=== PATIENT | male | born 1945 | race Caucasian/White ===

== ENCOUNTER 2016-04-25 08:45 | Outpatient (CLI) | payer MEDICARE, BC | END 2016-04-25 08:46 | disposition home or self-care (01) | DX: Z00.00 Encounter for general adult medical examination without abnormal findings (principal); Z13.6 Encounter for screening for cardiovascular disorders; Z79.1 Long term (current) use of non-steroidal anti-inflammatories (NSAID); N40.1 Benign prostatic hyperplasia with lower urinary tract symptoms; K59.00 Constipation, unspecified; M54.6 Pain in thoracic spine; Z13.1 Encounter for screening for diabetes mellitus ==

== ENCOUNTER 2018-03-04 11:09 | Outpatient (CLI) | payer MEDICARE, BC ==
[2018-03-04 17:45] LABS: BILIRUBIN,URINE NEGATIVE (NEGATIVE); GLUCOSE, URINE (UA) NEGATIVE (NEGATIVE); KETONES,URINE (UA) NEGATIVE (NEGATIVE); LEUKOCYTE ESTERASE, URINE NEGATIVE (NEGATIVE); NITRITE,URINE NEGATIVE (NEGATIVE); OCCULT BLOOD,URINE NEGATIVE (NEGATIVE); PROTEIN,URINE NEGATIVE (NEGATIVE); UROBILINOGEN,URINE 0.2 (NORMAL) E.U./dL (NORMAL)
[2018-03-04 17:54] LABS: CLARITY,URINE CLEAR (CLEAR)
== END 2018-03-04 11:10 | disposition home or self-care (01) ==
LOC: LAB.F 11:09
PROVIDERS: ATTEND Internal Medicine
DX: N40.1 Benign prostatic hyperplasia with lower urinary tract symptoms (principal)
CPT/HCPCS: 81001; 81003; 87086

== ENCOUNTER 2018-03-09 09:57 | Outpatient (CLI) | payer MEDICARE, BC ==
--- NOTE | 2018-03-09 17:12 | XRAY Report ---
Reason: NECK PAIN,THORACIC BACK PAIN Procedure Date: 03/09/2018 Accession Number: [id number] / [id number] Procedure: XR - Cervical Spine Complete CPT Code: FULL RESULT: EXAM: CERVICAL SPINE RADIOGRAPHY. EXAM DATE: 03/09/2018 10:18 AM. CLINICAL HISTORY: Neck pain, thoracic back pain. COMPARISONS: None. TECHNIQUE: 5 views. FINDINGS: Alignment: There is loss of the normal cervical lordosis with mild degenerative straightening/kyphosis. No significant listhesis. Bones: No acute fracture identified. There are left lateral malleable plate and screw devices fixated to the left lateral masses and the spinous processes C3-C7. Hardware appears intact. No fractures or bone lesions. Disks: There is multilevel degenerative disk space narrowing with anterior osteophyte greatest at C5-C6 and C6-C7 with mild to moderate anterior osteophyte at C3-C4 and C4-C5. Facets: Multilevel facet arthrosis resulting in mild right-sided foraminal narrowing at C5-C6 and on the left at C3-C4 and C4-C5. Neural Foramina: As above. Soft Tissues: Normal. No prevertebral soft tissue swelling. The visualized lung apices are clear. IMPRESSION: Multilevel degenerative disk and facet changes as described. Intact hardware as described. No acute fracture appreciated. RADIA
--- NOTE | 2018-03-10 10:13 | XRAY Report ---
Reason: NECK PAIN,THORACIC BACK PAIN Procedure Date: 03/09/2018 Accession Number: [id number] / [id number] Procedure: XR - Thoracic Spine 2 View CPT Code: FULL RESULT: EXAM: THORACIC SPINE RADIOGRAPHY EXAM DATE: 03/09/2018 10:18 AM. CLINICAL HISTORY: Neck pain, thoracic back pain. COMPARISON: None. TECHNIQUE: 2 views. FINDINGS: Alignment: Normal. No spondylolisthesis or scoliosis. Bones: There is mild fishmouth-type endplate compression of T7-T9 age-indeterminate but likely remote. There is no paraspinous soft tissue swelling. No appreciable loss of height of the upper thoracic spine in the region of pain. Disks: Normal. Disk heights are maintained. Soft Tissues: Normal. The visualized lungs and cardiomediastinal silhouette are normal. IMPRESSION: Mild fishmouth-type endplate compression T7 through T9 age-indeterminate. No evidence of acute compression fracture of the upper thoracic spine in the region of symptoms. RADIA
== END 2018-03-09 09:58 | disposition home or self-care (01) ==
LOC: DI 09:57
PROVIDERS: ATTEND Internal Medicine
DX: M50.30 Other cervical disc degeneration, unspecified cervical region (principal); M25.78 Osteophyte, vertebrae; M51.04 Intervertebral disc disorders with myelopathy, thoracic region
CPT/HCPCS: 72050; 72070

== ENCOUNTER 2018-03-18 10:08 | Outpatient (CLI) | payer MEDICARE, BC ==
--- NOTE | 2018-03-19 09:11 | DEXA Report ---
Reason: OTHER SPECIFIED DISCORDERS OF BONE, MULTIPLE SITES Procedure Date: 03/18/2018 Accession Number: [id number] / [id number] Procedure: DEX - Dexa Spine and/or Hip CPT Code: FULL RESULT: EXAM: Dexa Spine and/or Hip DATE: 03/18/2018 11:42 AM CLINICAL HISTORY: OTHER SPECIFIED DISCORDERS OF BONE, MULTIPLE SITES TECHNIQUE: Dual energy x-ray absorptiometry (DXA) was performed on a [employer] System. Regions measured are the AP Spine, femoral neck, and if needed forearm. COMPARISON: None. In accordance with the International Society for Clinical Densitometry (ISCD) guidelines, data from previous exams may be reanalyzed using current recommendations and techniques. This is done to allow a more accurate basis for comparison with the current study. FINDINGS: The data for the lumbar spine is as follows: BMD (g/cm/cm) T-SCORE Z-SCORE REGION L1 1.039 -1.0 L2 1.042 -1.7 L3 1.280 0.3 L4 1.415 1.5 TOTAL 1.201 -0.2 NOTE: All evaluable vertebrae are used for classification The data for the hip is as follows: BMD (g/cm/cm) T-SCORE Z-SCORE REGION Neck 0.943 -1.0 TOTAL 1.070 -0.2 NOTE: The femoral neck or total proximal femur, whichever is lowest, is used for classification. IMPRESSION: THE WHO CLASSIFICATION BASED ON THE INTERNATIONAL REFERENCE STANDARD IS NORMAL. THE FRACTURE RISK IS NOT INCREASED. RECOMMENDATION: Patients with diagnosis of osteoporosis or osteopenia should have regular bone mineral density assessment. For those eligible for Medicare, routine testing is allowed once every 2 years. Testing frequency can be increased for patients who have rapidly progressing disease or for those who are receiving medical therapy to restore bone mass. COMMENT: World Health Organization (WHO) definitions for osteoporosis and osteopenia: NORMAL BMD: T-score at -1.0 or higher, fracture risk is low OSTEOPENIA BMD: T-score between -1.0 and -2.5, fracture risk is increased. OSTEOPOROSIS BMD: T-score at -2.5 or lower, fracture risk is high. National Osteoporosis Foundation recommends: 1. Obtain adequate dietary calcium (at least 1200 mg per day) and vitamin D (400-800 international units per day). 2. Participate, as appropriate, in regular weightbearing and muscle-strengthening exercise. 3. Avoid tobacco use and reduce alcohol and caffeine intake. 4. For more detailed information see the website at www.NOF.org.
== END 2018-03-18 10:09 | disposition home or self-care (01) ==
LOC: DI 10:08
PROVIDERS: ATTEND Internal Medicine
DX: M85.89 Other specified disorders of bone density and structure, multiple sites (principal)
CPT/HCPCS: 77080

== ENCOUNTER 2018-05-21 08:05 | Outpatient (CLI) | payer MEDICARE, BC | END 2018-05-21 08:06 | disposition home or self-care (01) | LOC: LAB.F 08:05 | PROVIDERS: ATTEND Internal Medicine | DX: E66.3 Overweight (principal); Z13.1 Encounter for screening for diabetes mellitus | CPT/HCPCS: 36415; 82947 ==

== ENCOUNTER 2018-06-11 08:19 | Outpatient (CLI) | payer MEDICARE, BC ==
--- NOTE | 2018-06-11 14:45 | Ultrasound Report ---
Reason: FAMILY HISTORY: AORTIC ANEURYSM Procedure Date: 06/11/2018 Accession Number: [id number] / [id number] Procedure: US - Aorta Screening CPT Code: FULL RESULT: EXAM: AORTIC DOPPLER ULTRASOUND EXAM DATE: 06/11/2018 08:36 AM. CLINICAL HISTORY: FAMILY HISTORY: AORTIC ANEURYSM. COMPARISON: None. TECHNIQUE: Real-time sonographic imaging of retroperitoneal vascular structures, including color-flow, Doppler flow and spectral analysis was performed by the sales representative leather [employer]. Multiple veterans employment representative static images were saved for review. FINDINGS: Aorta: The abdominal aorta was adequately visualized. Vascular ectasia with no evidence for abdominal aortic aneurysm. Aorta: Proximal: Sagittal AP: 2.5 cm. Mid: Transverse: 2.5 x 2.7 cm. Distal: Transverse: 2.1 x 2.6 cm. Caliber WNL: Yes. Plaque visualized: No. Iliacs: Right Iliac: Transverse: 1.3 x 1.3 cm. Left Iliac: Transverse: 1.4 x 1.3 cm. Iliac Vessels: The visualized proximal common iliac arteries are normal in caliber. Other: None. IMPRESSION: Aortic ectasia. No abdominal aortic aneurysm. RADIA
== END 2018-06-11 08:20 | disposition home or self-care (01) ==
LOC: DI 08:19
PROVIDERS: ATTEND Internal Medicine
DX: I77.819 Aortic ectasia, unspecified site (principal); Z82.49 Family history of ischemic heart disease and other diseases of the circulatory system
CPT/HCPCS: 76706

== ENCOUNTER 2019-06-01 07:37 | Outpatient (CLI) | payer MEDICARE, BC ==
[2019-06-01 10:17] LABS: CALCIUM 9.3 mg/dL (8.5-10.3)
== END 2019-06-01 07:38 | disposition home or self-care (01) ==
LOC: LAB.S 07:37
PROVIDERS: ATTEND Internal Medicine
DX: I10 Essential (primary) hypertension (principal)
CPT/HCPCS: 36415; 80048

== ENCOUNTER 2019-08-31 09:16 | Outpatient (CLI) | payer MEDICARE, BC ==
--- NOTE | 2019-08-31 10:02 | XRAY Report ---
Reason: CERVICAL RADICULOPATHY,LT HIP PAIN,RT JOINT PAIN Procedure Date: 08/31/2019 Accession Number: [id number] / [id number] Procedure: XR - Hips 2V BILAT CPT Code: Final Report FULL RESULT: PROCEDURE: Hips 2V BILAT INDICATIONS: CERVICAL RADICULOPATHY,LT HIP PAIN,RT JOINT PAIN TECHNIQUE: 3 views of the hip were acquired. COMPARISON: None. FINDINGS: Bones: No fractures or dislocations. No suspicious bony lesions. The visualized pelvic ring appears intact. Mild bilateral hip joint degeneration. Lower lumbar spondylosis and mild lateral curvature. Sacroiliac joints grossly unremarkable. Soft tissues: No suspicious soft tissue calcifications or masses. IMPRESSION: Mild bilateral hip joint degeneration. Reviewed by: Oliver Slade MD on 08/31/2019 10:00 AM PDT Approved by: Oliver Slade MD on 08/31/2019 10:00 AM PDT Station ID: [id number]
--- NOTE | 2019-08-31 15:38 | MRI Report ---
Reason: CERVICAL RADICULOPATHY,LT HIP PAIN,RT JOINT PAIN Procedure Date: 08/31/2019 Accession Number: [id number] / [id number] Procedure: MRI - Cervical Spine W/O CPT Code: Final Report FULL RESULT: PROCEDURE: Cervical Spine W/O INDICATIONS: CERVICAL RADICULOPATHY,LT HIP PAIN,RT JOINT PAIN TECHNIQUE: Noncontrast sagittal T1 spin echo and T2 fast spin echo, sagittal STIR, foraminal oblique sagittal T2 fast spin echo, and axial gradient echo or T2 fast spin echo through the cervical spine. COMPARISON: Cervical spine x-ray series 03/09/2018. FINDINGS: Image quality: Excellent. Alignment and Curvature: There is normal bony alignment. Bone Marrow: Mild reactive endplate changes noted adjacent to the C2-C3, C3-C4, C4-C5, C5-C6 and C6-C7 discs. Spinal Cord: Small, proximally 6 mm diameter focus of increased T2 signal noted in the dorsal column of the thoracic spinal cord level of the C5 vertebral body. No cerebellar tonsillar herniation. Paraspinous Soft Tissues: No paravertebral masses. Prevertebral soft tissues are normal in thickness. C2-C3: Loss of disc signal and mild loss of disc height. Moderate, diffuse disc bulge. Mild ligament flavum hypertrophy. Moderate bilateral facet hypertrophy. Severe narrowing of the central canal with mild compression of the cervical spinal cord. Severe bilateral neural foraminal narrowing with compression of the exiting C3 nerve roots. C3-C4: Loss of disc signal and mild loss of disc height. Moderate, diffuse disc bulge. Mild bilateral facet hypertrophy. Severe narrowing of the central canal with slight compression of the cervical spinal cord. Severe bilateral neural foraminal narrowing with compression of the exiting C4 nerve roots. C4-C5: Loss of disc signal. Mild, diffuse disc bulge. Mild right and moderate left facet hypertrophy. Mild bilateral uncovertebral joint hypertrophy. Moderate narrowing of the central canal. Severe bilateral neural foraminal narrowing with compression of the exiting C5 nerve roots. C5-C6: Loss of disc signal and mild loss of disc height. Mild, diffuse disc bulge. Mild bilateral facet hypertrophy. Moderate bilateral uncovertebral joint hypertrophy. Mild narrowing of the central canal. Severe bilateral neural foraminal narrowing with compression of the exiting C6 nerve roots. C6-C7: Loss of disc signal and height. Mild, diffuse disc bulge. Mild bilateral facet hypertrophy. Moderate bilateral uncovertebral joint hypertrophy. Mild narrowing of the central canal. Severe bilateral neural foraminal narrowing with compression of the exiting C7 nerve roots. C7-T1: Loss of disc signal. Mild, diffuse disc bulge. Mild ligamentum flavum hypertrophy. Mild bilateral facet hypertrophy. Moderate narrowing of the central canal. Severe bilateral neural foraminal narrowing with compression of the exiting C8 nerve roots. IMPRESSION: 1. Small focus of increased T2 signal in the cervical spinal cord level of the C5 vertebral body. Finding is nonspecific may represent demyelinating process such as multiple sclerosis, small area of myelomalacia or less likely early neoplastic process. Recommend MRI of cervical spine with contrast for further characterization. 2. Multilevel degenerative disc disease. 3. Multilevel facet and uncovertebral arthropathy. 4. Severe C2-C3 and C3-C4 central canal narrowing with slight compression of the cervical spinal cord. 5. Severe bilateral C2-C3, C3-C4, C4-C5, C5-C6, C6-C7 and C7-T8 neural foraminal narrowing. There is compression of the exiting bilateral C3, C4, C5, C6, C7 and C8 nerve root secondary to neural foraminal narrowing. Reviewed by: Edelmira Mitchell MD, PhD on 08/31/2019 3:37 PM PDT Approved by: Edelmira Mitchell MD, PhD on 08/31/2019 3:37 PM PDT Station ID: [id number]
== END 2019-08-31 09:17 | disposition home or self-care (01) ==
LOC: DI 09:16
PROVIDERS: ATTEND Internal Medicine
DX: M50.91 Cervical disc disorder, unspecified, high cervical region (principal); M47.812 Spondylosis without myelopathy or radiculopathy, cervical region; M47.813 Spondylosis without myelopathy or radiculopathy, cervicothoracic region; M48.02 Spinal stenosis, cervical region; M48.03 Spinal stenosis, cervicothoracic region; M16.0 Bilateral primary osteoarthritis of hip
CPT/HCPCS: 72141; 73521

== ENCOUNTER 2019-09-14 17:01 | Outpatient (CLI) | payer MEDICARE, BC ==
[2019-09-14 17:46] LABS: CREATININE 0.9 mg/dL (0.6-1.2)
[2019-09-14] MEDS ORDERED: GADOBUTROL 7.5 MMOL/7.5 ML VIAL ONE (18:07)
[2019-09-14] MEDS ORDERED: GADOBUTROL 7.5 MMOL/7.5 ML VIAL IVP ONE (19:05)
--- NOTE | 2019-09-15 10:03 | MRI Report ---
PROCEDURE: Cervical Spine W/WO INDICATIONS: CERVICAL SPINAL STENOSIS CONTRAST: IV CONTRAST: Gadavist ml: 7.5 TECHNIQUE: Noncontrast sagittal T1 spin echo and T2 fast spin echo, sagittal STIR, sagittal PD fast spin echo, f oraminal oblique sagittal T2 fast spin echo, axial gradient echo or T2 fast spin echo through the cer vical spine. After the administration of contrast, sagittal and axial T1 spin echo with fat saturati on through the cervical spine. COMPARISON: Noncontrast cervical spine MRI 08/31/2019. Correlation is also made with cervical spine p opal films 03/09/2018. FINDINGS: Image quality: Diagnostic, with note made of motion artifact. Alignment and curvature: There is straightening of the normal cervical lordosis. Minimal retrolisthe sis is seen at the C3-C4 level. Marrow: Marrow demonstrates normal overall signal. Spinal cord: There is again seen a focus of increased T2-weighted signal within the spinal cord at t he C5 level, as on series 401 image 7. This focus does not enhance. No additional abnormal foci can b e seen within the spinal cord. No abnormal spinal cord enhancement can be seen elsewhere. Visualized spinal cord is normal in size. No cerebellar tonsillar herniation. Paraspinous soft tissues: No paravertebral masses or suspicious enhancement. Postoperative changes are seen, which are much better demonstrated on plain film, with removal of por tions of the posterior elements on the left and placement of plate and screw fixation. This patient has multiple levels of relatively prominent cervical spine degenerative change, which ar e unchanged compared to the prior study 2 weeks previously. IMPRESSION: The previously seen abnormal focus of increased T2-weighted signal at the C5 level does not enhance. Reviewed by: Evan Stout MD on 09/15/2019 9:02 AM KOJO Approved by: Evan Stout MD on 09/15/2019 9:02 AM KOJO Station ID: [id number]
== END 2019-09-14 17:02 | disposition home or self-care (01) ==
LOC: DI 17:01
PROVIDERS: ATTEND Internal Medicine
DX: M47.812 Spondylosis without myelopathy or radiculopathy, cervical region (principal); I10 Essential (primary) hypertension
CPT/HCPCS: 36415; 72156; 82565; A9585

== ENCOUNTER 2020-01-26 10:35 | Outpatient (CLI) | payer MEDICARE, BC ==
[2020-01-26 15:24] LABS: CALCIUM 9.4 mg/dL (8.5-10.3); CREATININE 0.9 mg/dL (0.6-1.2)
== END 2020-01-26 10:36 | disposition home or self-care (01) ==
LOC: LAB.S 10:35
PROVIDERS: ATTEND Internal Medicine
DX: I10 Essential (primary) hypertension (principal)
CPT/HCPCS: 36415; 80048

== ENCOUNTER 2020-02-23 14:25 | Outpatient (CLI) | payer MEDICARE, BC ==
[2020-02-23 20:29] LABS: CALCIUM 9.7 mg/dL (8.5-10.3)
== END 2020-02-23 14:26 | disposition home or self-care (01) ==
LOC: LAB.S 14:25
PROVIDERS: ATTEND Internal Medicine
DX: I10 Essential (primary) hypertension (principal)
CPT/HCPCS: 36415; 80048

== ENCOUNTER 2020-05-24 08:05 | Outpatient (CLI) | payer MEDICARE, BC ==
[2020-05-24 15:46] LABS: BUN - BLOOD UREA NITROGEN 23 mg/dL (6-20); CALCIUM 9.6 mg/dL (8.5-10.3); CARBON DIOXIDE - CO2 27 mmol/L (21-32); CHLORIDE 104 mmol/L (101-111); CHOL/HDL RATIO 2.8 (<5.0); CHOLESTEROL 225 mg/dL; CREATININE 0.9 mg/dL (0.6-1.2); GFR - MDRD 83 (>89); GLUCOSE 99 mg/dL (70-100); HDL CHOLESTEROL 81 mg/dL; LDL CHOLESTEROL,CALCULATED 133 mg/dL; LDL/HDL RATIO 1.6 (<3.6); POTASSIUM 4.1 mmol/L (3.5-5.0); SODIUM 137 mmol/L (135-145); TRIGLYCERIDES 55 mg/dL; VLDL CHOLESTEROL 11 mg/dL
== END 2020-05-24 08:06 | disposition home or self-care (01) ==
LOC: LAB.S 08:05
PROVIDERS: ATTEND Internal Medicine
DX: I10 Essential (primary) hypertension (principal); Z13.220 Encounter for screening for lipoid disorders
CPT/HCPCS: 36415; 80048; 80061; 83721

== ENCOUNTER 2020-11-28 08:00 | Outpatient (CLI) | payer MEDICARE, BC ==
--- NOTE | 2020-11-28 15:49 | XRAY Report ---
PROCEDURE: Hand 3 View RT INDICATIONS: SPRAIN OF RIGHT LITTLE FINGER TECHNIQUE: 3 views of the hand(s) acquired. COMPARISON: None FINDINGS: Bones: There is a fracture at the base of the proximal fifth phalanx with intra-articular extension. It is minimally displaced. No suspicious bony lesions. Soft tissues: No suspicious soft tissue calcifications. IMPRESSION: Minimally displaced intra-articular proximal fifth phalanx base fracture. Reviewed by: Ada Blanchard MD on 11/28/2020 3:48 PM PDT Approved by: Ada Blanchard MD on 11/28/2020 3:48 PM PDT Station ID: [id number]
== END 2020-11-28 23:59 | disposition home or self-care (01) ==
LOC: DI.S 08:00
PROVIDERS: ATTEND Emergency Medicine
DX: S62.616A Displaced fracture of proximal phalanx of right little finger, initial encounter for closed fracture (principal)

== ENCOUNTER 2021-07-12 09:59 | Outpatient (CLI) | payer MEDICARE, BC ==
[2021-07-12 15:41] LABS: BUN - BLOOD UREA NITROGEN 26 mg/dL (6-20); CALCIUM 9.4 mg/dL (8.5-10.3); CARBON DIOXIDE - CO2 27 mmol/L (21-32); CHLORIDE 97 mmol/L (101-111); CHOL/HDL RATIO 2.4 (<5.0); CHOLESTEROL 235 mg/dL; GFR - MDRD 73 (>89); GLUCOSE 91 mg/dL (70-100); HDL CHOLESTEROL 97 mg/dL; LDL CHOLESTEROL,CALCULATED 128 mg/dL; LDL/HDL RATIO 1.3 (<3.6); POTASSIUM 4.7 mmol/L (3.5-5.0); SODIUM 132 mmol/L (135-145); TRIGLYCERIDES 51 mg/dL; VLDL CHOLESTEROL 10 mg/dL
[2021-07-12 16:39] LABS: ESTIMATED AVERAGE GLUCOSE 105 mg/dL (70-100); HEMOGLOBIN A1c% 5.3 % (4.27-6.07)
== END 2021-07-12 10:00 | disposition home or self-care (01) ==
LOC: LAB.S 09:59
PROVIDERS: ATTEND Internal Medicine
DX: I10 Essential (primary) hypertension (principal); Z13.1 Encounter for screening for diabetes mellitus; Z13.220 Encounter for screening for lipoid disorders
CPT/HCPCS: 36415; 80048; 80061; 81599; 83036; 83721

== ENCOUNTER 2022-08-09 09:36 | Outpatient (CLI) | payer MEDICARE, BC | END 2022-08-09 09:37 | disposition home or self-care (01) | LOC: RT 09:36 | PROVIDERS: ATTEND Internal Medicine | DX: R00.1 Bradycardia, unspecified (principal) | CPT/HCPCS: 93005 ==

== ENCOUNTER 2023-01-28 10:01 | Outpatient (CLI) | payer MEDICARE, BC ==
[2023-01-28 14:49] LABS: BASOPHILS % (AUTO) 0.8 %; EOSINOPHILS # (AUTO) 0.3 10^3/uL (0.0-0.7); EOSINOPHILS % (AUTO) 5.3 %; HCT - HEMATOCRIT 39.9 % (42.0-52.0); HGB - HEMOGLOBIN 13.3 g/dL (14.0-18.0); LYMPHOCYTES # (AUTO) 0.8 10^3/uL (1.5-3.5); LYMPHOCYTES % (AUTO) 16.7 %; MEAN CORPUSCULAR HEMOGLOBIN 33.5 pg (27.0-31.0); MEAN CORPUSCULAR HGB CONC 33.3 g/dL (32.0-36.0); MEAN CORPUSCULAR VOLUME 100.5 fL (80.0-94.0); MEAN PLATELET VOLUME 10.5 fL (7.4-11.4); MONOCYTES # (AUTO) 0.4 10^3/uL (0.0-1.0); MONOCYTES % (AUTO) 7.1 %; NEUTROPHILS # (AUTO) 3.4 10^3/uL (1.5-6.6); NEUTROPHILS % (AUTO) 69.7 %; PLT - PLATELET COUNT 185 10^3/uL (130-450); RED BLOOD COUNT 3.97 10^6/uL (4.70-6.10); RED CELL DISTRIBUTION WIDTH 12.5 % (12.0-15.0); WHITE BLOOD COUNT 4.9 x10^3/uL (4.8-10.8)
[2023-01-28 16:03] LABS: CALCIUM 9.6 mg/dL (8.5-10.3); CREATININE 1.1 mg/dL (0.6-1.3); POTASSIUM 4.3 mmol/L (3.5-4.5)
== END 2023-01-28 10:02 | disposition home or self-care (01) ==
LOC: LAB.S 10:01
PROVIDERS: ATTEND Internal Medicine
DX: I10 Essential (primary) hypertension (principal); M54.16 Radiculopathy, lumbar region
CPT/HCPCS: 36415; 80048; 85025

== ENCOUNTER 2023-02-03 13:00 | Outpatient (CLI) | payer MEDICARE, BC | END 2023-02-03 13:01 | disposition home or self-care (01) | LOC: RT 13:00 | PROVIDERS: ATTEND Internal Medicine | DX: R00.1 Bradycardia, unspecified (principal) | CPT/HCPCS: 93005 ==